=== PATIENT | male | born 1985 | race African-American/Black ===

== ENCOUNTER 2019-02-14 12:39 | Emergency (ER) | payer MEDICARE ==
--- NOTE | 2019-02-14 14:31 | EDM.PDOC ---
ED HPI GENERAL MEDICAL PROBLEM - General Chief Complaint: General Stated Complaint: TOOTHACHE Time Seen by Provider: 02/14/19 13:00 Source of Information: Reports: Patient History Limitations: Reports: No Limitations - History of Present Illness INITIAL COMMENTS - FREE TEXT/NARRATIVE: 33 y.o.b.male came to the ed because of toothache in the past few days. Pt took Motrin yesterday. Pt does not smoke or drink. Denied trauma. No N/V/D or any other acute med issues. 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) Oral/Mouth Pain Score (Numeric/FACES): 10 - Related Data Allergies Allergy/AdvReac Type Severity Reaction Status Date / Time No Known Allergies Allergy Verified 02/14/19 13:34 Home Meds: Home Meds Amoxicillin/Potassium Clav [Augmentin 875-125 Tablet] 1 each PO BID #20 tablet 02/14/19 [Rx] Ibuprofen [Motrin] 600 mg PO Q6H PRN #30 tab 02/14/19 [Rx] ED ROS GENERAL - Review of Systems Review Of Systems: See Below Constitutional: Reports: No Symptoms HEENT: Reports: Dental Pain Respiratory: Reports: No Symptoms Cardiovascular: Reports: No Symptoms Endocrine: Reports: No Symptoms GI/Abdominal: Reports: No Symptoms : Reports: No Symptoms Musculoskeletal: Reports: No Symptoms Skin: Reports: No Symptoms Neurological: Reports: No Symptoms Psychiatric: Reports: No Symptoms Hematologic/Lymphatic: Reports: No Symptoms Immunologic: Reports: No Symptoms ED EXAM, GENERAL - Physical Exam Exam: See Below Exam Limited By: No Limitations General Appearance: Alert, WD/WN, Mild Distress Eye Exam: Bilateral Eye: Normal Inspection Ears: Normal External Exam Ear Exam: Bilateral Ear: Auricle Normal Nose: Normal Inspection, Normal Mucosa, No Blood Throat/Mouth: Normal Inspection, Normal Lips, Normal Voice, No Airway Compromise , Other (poor dentition) Head: Atraumatic, Normocephalic Neck: Normal Inspection, Supple, Non-Tender, Full Range of Motion Respiratory/Chest: No Respiratory Distress, Lungs Clear, Normal Breath Sounds, No Accessory Muscle Use, Chest Non-Tender Cardiovascular: Normal Peripheral Pulses, Regular Rate, Rhythm, No Edema, No Gallop, No JVD, No Murmur Peripheral Pulses: 1+: Radial (L) GI/Abdominal: Normal Bowel Sounds (Male) Exam: Deferred Rectal (Males) Exam: Deferred Back Exam: Normal Inspection, Full Range of Motion Extremities: Normal Inspection, Normal Range of Motion Neurological: Alert, Oriented, CN II-XII Intact, Normal Cognition, Normal Gait Psychiatric: Normal Affect, Normal Mood Skin Exam: Warm, Dry, Intact, Normal Color, No Rash Lymphatic: No Adenopathy Course - Vital Signs Text/Narrative:: 33 y.o.b.male came to the ed because of toothache in the past few days. Pt took Motrin yesterday. Pt does not smoke or drink. Denied trauma. No N/V/D or any other acute med issues. BP 148/83 Pulse 83 RR 18 Pulse ox 100% on RA Temp 36.6 PE: WNWD B M with toothache, gingivitis, poor dentition Impression: Gingivitis, Toothache Tx: Motrin, Augmentin Reexam: Pt did fine in the ed Plan: D/C with instructions Last Recorded V/S: Last Vital Signs Temp 36.6 C 02/14/19 13:00 Pulse 80 02/14/19 13:00 Resp 18 02/14/19 13:00 BP 149/104 H 02/14/19 13:00 Pulse Ox 100 02/14/19 13:00 Departure - Departure Time of Disposition: 14:26 Disposition: Home, Self-Care 01 Condition: Good Clinical Impression: Gingivitis, Toothache - Discharge Information Prescriptions: Amoxicillin/Potassium Clav [Augmentin 875-125 Tablet] 1 each PO BID #20 tablet Ibuprofen [Motrin] 600 mg PO Q6H PRN #30 tab PRN Reason: toothache Instructions: Gingivitis, [id number] Forms: ED Department Discharge Additional Instructions: Please use mouth hygiene, please take Motrin for pain, Augmentin as recommended , please f/u with a dentist, please come back if your symptoms get worse acutely
== END 2019-02-14 14:50 | disposition home or self-care (01) ==
LOC: FB.ED 12:39
DX: K05.10 Chronic gingivitis, plaque induced (principal); K08.89 Other specified disorders of teeth and supporting structures
CPT/HCPCS: 99282